=== PATIENT | female | born 1985 | race Caucasian/White ===

== ENCOUNTER 2016-10-02 14:41 | Emergency (ER) | payer OTHER ==
--- NOTE | 2016-10-02 17:04 | EDDOCDS ---
Nurse's Notes [facility] Name: Becka Holt Age: 31 yrs Sex: Female : 1985 Arrival Date: 10/02/2016 Time: 14:41 Bed PR1 / Private MD: BING Smith Diagnosis: Abnormal uterine and vaginal bleeding, unspecified Presentation: 10/02 14:48 Presenting complaint: Patient states: "I think I'm having a miscarriage." Reports onset ead of vaginal bleeding was Sunday. Reports heavy bleeding today with some clots. Reports cramping. LMP of 08/20/16. Risk factors: The patient reports no loss of conciousness prior to arrival. This patient has not had a hysterectomy. This patient has not begun menopause. Adult Sepsis Screening: The patient does not have new or worsening altered mentation. Patient's respiratory rate is less than 22. Systolic blood pressure is greater than 100. Patient has a qSOFA score of 0- Negative Sepsis Screen. Suicide/Homicide risk assessment- the patient denies having any suicidal and/or homicidal ideations and does not present with any other emotional, behavioral or mental health complaints. Status: The patient is a dependent. Transition of care: patient was not received from another setting of care. 14:48 Acuity: PRUDENCE Level 3 ead 14:48 Method Of Arrival: Walkin/Carried/Asstd ead Triage Assessment: 14:50 General: Appears in no apparent distress, Behavior is appropriate for age, cooperative. ead Pain: Location: abdomen Pain currently is 7 out of 10 on a pain scale. Respiratory: Airway is patent Respiratory effort is even, unlabored. GI: Reports cramping. : Reports vaginal bleeding that is with clots heavy flow. Derm: Skin is pink, warm & dry. 14:51 Pt Declines HIV testing. 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 none - PMHx: none; - PSHx: none; - Social history: Smoking status: Patient states was never smoker of tobacco. No barriers to communication noted, The patient speaks fluent Belgian, Speaks appropriately for age. - Family history: Not pertinent. - : The pt / caregiver states he / she is not on anticoagulants. Home medication list is obtained from the patient. - Exposure Risk Screening:: None identified. Screenin:01 Screening information is obtained from the patient. Fall risk: No risks identified. dsf Assistance ADL's: requires no assistance with activities of daily living. Abuse/DV Screen: The patient / caregiver reports he/she is: not in a situation that causes fear, pain or injury. Nutritional screening: No deficits noted. Advance Directives: Currently, there is no health care proxy. home support is adequate. Assessment: 17:01 Adult Sepsis Screening: The patient does not have new or worsening altered mentation. dsf Patient's respiratory rate is less than 22. Systolic blood pressure is greater than 100. Patient has a qSOFA score of 0- Negative Sepsis Screen. General: Appears in no apparent distress, Behavior is appropriate for age, cooperative. Pain: Location: right lower quadrant and left lower quadrant Pain currently is 7 out of 10 on a pain scale. Quality of pain is described as crampy. Neurological: Level of Consciousness is awake, alert. Cardiovascular: Capillary refill < 3 seconds. Respiratory: Airway is patent Respiratory effort is even, unlabored, Respiratory pattern is regular, symmetrical. Derm: Skin is pink, warm & dry. Vital Signs: 14:42 BP 103 / 69; Pulse 79; Resp 16; Temp 96.8(O); Pulse Ox 100% on R/A; Weight 63.5 kg (R); lr2 Height 5 ft. 9 in. (175.26 cm) (R); Pain 6/10; 17:00 BP 106 / 56; Pulse 77; Resp 20; Temp 98.3(O); Pulse Ox 97% on R/A; Pain 7/10; dsf 14:42 Body Mass Index 20.67 (63.50 kg, 175.26 cm) lr2 Vitals: 14:42 Log In Time: October 02, 2016 at 14:41. lr2 ED Course: 14:42 Patient visited by Lizbeth Berrios. lr2 14:42 Patient moved to Waiting lr2 14:43 BING Smith is Private Physician. lr2 14:44 Patient moved to Pre RCE lr2 14:50 Triage Initiated ead 15:10 Patient moved to Triage 3 ar3 15:18 [facility] cc10 15:18 Azeem Perez MD is Attending Physician. cc10 15:38 Patient visited by Hugh Keane PA-C. cc10 15:38 Patient visited by Hugh Keane PA-C. cc10 15:50 Patient moved to TR1 ar3 15:50 Hcg, Serum Quantitative Sent. ar3 15:50 Type & Screen Sent. ar3 16:02 Patient moved to Ultrasound br3 16:04 [facility] Payment Agreement was scanned into [employer] and attached to record. gjb 16:19 Patient moved to TR1 br3 16:45 Patient name changed from Becka\\S\\\\S\\Yanet\\S\\ to Becka\\S\\ \\S\\Yanet. EDMS 16:51 Patient moved to dsf 16:56 Luis [facility] [place] Referral Physician. cc10 17:01 The patient / caregiver is instructed regarding the plan of care and ED course. dsf 17:01 No IV's were initiated during this patient's visit. No procedures done that require dsf assistance. Order Results: Lab Order: Hcg, Serum Quantitative; SPEC'M 10/02/16 15:49 Test: HCG, SERUM QUANTITATIVE; Value: 409; Units: MIU/ML; Status: F Test Note: ; GESTATIONAL AGE APPROXIMATE HCG RANGE (MIU/ML) 0.2-1 WEEK 5-50 1-2 WEEKS 50-500 2-3 WEEKS 100-5,000 3-4 WEEKS 500-10,000 4-5 WEEKS 1,000-50,000 5-6 WEEKS 10,000-100,000 6-8 WEEKS 15,000-200,000 2-3 MONTHS 10,000-100,000 NON FEMALES LESS THAN 3.0 Patient samples may contain human heterophilic antibodies that could react with immunoassays to give falsely elevated or depressed results. This assay has been designed to minimize interference from heterophilic antibodies. Elevated hCG levels have also been associated with trophoblastic disease and nontrophoblastic neoplasms. The possibility of having these diseases should be considered before a diagnosis of is made. This test is not intended for use as a surrogate marker for aiding in the diagnosis or monitoring the treatment of cancer patients. [employer] methodology. Lab Order: Type & Screen; SPEC'M 10/02/16 15:49 Test: BLOOD TYPE; Value: O POS; Status: F Test: AB SCREEN (INDIRECT LEILA)VIS; Value: NEGATIVE; Status: F Outcome: 16:56 Discharge ordered by Provider. cc10 17:01 Discharge Assessment: Patient awake, alert and oriented x 3. No cognitive and/or dsf functional deficits noted. Patient verbalized understanding of disposition instructions. patient administered narcotics - no. The following High Risk Discharge criteria are identified: None. Discharged to home ambulatory. Condition: stable. Discharge instructions given to patient, Instructed on discharge instructions, follow up and referral plans. Demonstrated understanding of instructions, Pt was receptive of discharge instructions/ teaching. Property sent home with patient. 17:03 Ultrasound Study completed. dsf 17:03 Patient left the ED. dsf Signatures: Dispatcher [employer] EDMS Argenis Rodriguez br3 Tonya Marquez, POCKET CLOSER POCKET CLOSER ar3 Jeaneth GarciaRN RN dsf Keya White,RN RN Hugh Kaplan PA-C PA-C cc10 Evelyn Mera Laura lr2 PEDRO
--- NOTE | 2016-10-02 17:04 | EDDOCDS ---
Physician Documentation [facility] Name: Becka Holt Age: 31 yrs Sex: Female : 1985 Arrival Date: 10/02/2016 Time: 14:41 Bed PR Private MD: BING Smith Disposition: 10/02/16 16:56 Discharged to Home/Self Care. Impression: Abnormal uterine and vaginal bleeding, unspecified. - Condition is Stable. - Discharge Instructions: Threatened Miscarriage. - Medication Reconciliation form. - Follow up: BING Smith; When: Call to arrange an appointment; Reason: Wound/Symptom Recheck, Recheck today's complaints, Worsening of conditions, Continuance of care, recheck HCG level. - Problem is new. - Symptoms are unchanged. - Notes: Your HCG level today is 406. Please follow up with Luis for a recheck levelon Sun. Historical: - Allergies: no known allergies; - Home Meds: 1. none - PMHx: none; - PSHx: none; - Social history: Smoking status: Patient states was never smoker of tobacco. No barriers to communication noted, The patient speaks fluent Dominican, Speaks appropriately for age. - Family history: Not pertinent. - : The pt / caregiver states he / she is not on anticoagulants. Home medication list is obtained from the patient. - Exposure Risk Screening:: None identified. 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 9 in. (175.26 cm) (R); Pain 6/10; 17:00 BP 106 / 56; Pulse 77; Resp 20; Temp 98.3(O); Pulse Ox 97% on R/A; Pain 7/10; dsf 14:42 Body Mass Index 20.67 (63.50 kg, 175.26 cm) lr2 MDM: 15:46 Hcg, Serum Quantitative Ordered. EDMS 15:46 Type & Screen Ordered. EDMS 15:46 US 1st trimester Ordered. EDMS 15:57 Financial registration complete. gjb 16:04 [facility] Payment Agreement was scanned into [employer] and attached to record. gjb 16:06 TRANSVAGINAL US Ordered. EDMS 16:46 Hcg, Serum Quantitative Reviewed. cc10 16:46 Type & Screen Reviewed. cc10 Signatures: Dispatcher [employer] Jeaneth Oneil,RN RN Keya SandersRN RN Hugh Kaplan, PASylvieC PA-Izaiah ccEvelyn Carpenter The chart was reviewed and I authenticate all verbal orders and agree with the evaluation and treatment provided.Attachments: 16:04 [facility] Payment Agreement gjb MTDD
--- NOTE | 2016-10-02 17:42 | REP ---
Obstetric sonography: History: Vaginal bleeding. No beta-HCG level available. 6 weeks 1 day by the menstrual history. Findings: Transabdominal and transvaginal scanning are performed. Uterine dimensions are 8.6 x 3.5 x 4.7 cm. No intrauterine gestational sac is seen. Endometrial echo is centrally placed and 1.1 cm in thickness. No free fluid is noted. No focal uterine mass is seen. Normal ovaries are seen. Right ovary measures 2.4 x 1.7 x 2.2 cm. Left ovary dimensions are 3.0 x 1.6 x 2.1 cm. Doppler flow is normal to both ovaries. Resistive indices are 0.50 and 0.39 on the right and left respectively. Impression: No intrauterine gestation. Normal ovaries bilaterally. No free fluid. Early intrauterine versus completed spontaneous AB versus, less likely, ectopic . Clinical and possibly sonographic followup suggested. Signed by Maxime Sher MD 10/02/2016 08:05 P
--- NOTE | 2016-10-04 18:04 | EDDOCDS ---
Physician Documentation [facility] Name: Becka Holt Age: 31 yrs Sex: Female : 1985 Arrival Date: 10/02/2016 Time: 14:41 Bed PR Private MD: BING Smith Disposition: 10/02/16 16:56 Discharged to Home/Self Care. Impression: Abnormal uterine and vaginal bleeding, unspecified. - Condition is Stable. - Discharge Instructions: Threatened Miscarriage. - Medication Reconciliation form. - Follow up: BING Smith; When: Call to arrange an appointment; Reason: Wound/Symptom Recheck, Recheck today's complaints, Worsening of conditions, Continuance of care, recheck HCG level. - Problem is new. - Symptoms are unchanged. - Notes: Your HCG level today is 406. Please follow up with Luis for a recheck levelon Sun. Historical: - Allergies: no known allergies; - Home Meds: 1. none - PMHx: none; - PSHx: none; - Social history: Smoking status: Patient states was never smoker of tobacco. No barriers to communication noted, The patient speaks fluent Citizen Of [place], Speaks appropriately for age. - Family history: Not pertinent. - : The pt / caregiver states he / she is not on anticoagulants. Home medication list is obtained from the patient. - Exposure Risk Screening:: None identified. 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 9 in. (175.26 cm) (R); Pain 6/10; 17:00 BP 106 / 56; Pulse 77; Resp 20; Temp 98.3(O); Pulse Ox 97% on R/A; Pain 7/10; dsf 14:42 Body Mass Index 20.67 (63.50 kg, 175.26 cm) lr2 MDM: 15:46 Hcg, Serum Quantitative Ordered. EDMS 15:46 Type & Screen Ordered. EDMS 15:46 US 1st trimester Ordered. EDMS 15:57 Financial registration complete. gjb 16:04 [facility] Payment Agreement was scanned into [employer] and attached to record. gjb 16:06 TRANSVAGINAL US Ordered. EDMS 16:46 Hcg, Serum Quantitative Reviewed. cc10 16:46 Type & Screen Reviewed. cc10 Signatures: Dispatcher [employer] Jeaneth Oneil,RN RN Keya SandersRN RN Hugh Kaplan, PASylvieC PA-Izaiah ccEvelyn Carpenter The chart was reviewed and I authenticate all verbal orders and agree with the evaluation and treatment provided.Attachments: 16:04 [facility] Payment Agreement gjb Chart Complete MTDD
--- NOTE | 2016-10-04 18:04 | EDDOCDS ---
Physician Documentation [facility] Name: Becka Holt Age: 31 yrs Sex: Female : 1985 Arrival Date: 10/02/2016 Time: 14:41 Bed PR Private MD: BING Smith Disposition: 10/02/16 16:56 Discharged to Home/Self Care. Impression: Abnormal uterine and vaginal bleeding, unspecified. - Condition is Stable. - Discharge Instructions: Threatened Miscarriage. - Medication Reconciliation form. - Follow up: BING Smith; When: Call to arrange an appointment; Reason: Wound/Symptom Recheck, Recheck today's complaints, Worsening of conditions, Continuance of care, recheck HCG level. - Problem is new. - Symptoms are unchanged. - Notes: Your HCG level today is 406. Please follow up with Luis for a recheck levelon Sun. Historical: - Allergies: no known allergies; - Home Meds: 1. none - PMHx: none; - PSHx: none; - Social history: Smoking status: Patient states was never smoker of tobacco. No barriers to communication noted, The patient speaks fluent Mauritanian, Speaks appropriately for age. - Family history: Not pertinent. - : The pt / caregiver states he / she is not on anticoagulants. Home medication list is obtained from the patient. - Exposure Risk Screening:: None identified. 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 9 in. (175.26 cm) (R); Pain 6/10; 17:00 BP 106 / 56; Pulse 77; Resp 20; Temp 98.3(O); Pulse Ox 97% on R/A; Pain 7/10; dsf 14:42 Body Mass Index 20.67 (63.50 kg, 175.26 cm) lr2 MDM: 15:46 Hcg, Serum Quantitative Ordered. EDMS 15:46 Type & Screen Ordered. EDMS 15:46 US 1st trimester Ordered. EDMS 15:57 Financial registration complete. gjb 16:04 [facility] Payment Agreement was scanned into [employer] and attached to record. gjb 16:06 TRANSVAGINAL US Ordered. EDMS 16:46 Hcg, Serum Quantitative Reviewed. cc10 16:46 Type & Screen Reviewed. cc10 Signatures: Dispatcher [employer] Jeaneth Oneil,RN RN Keya SandersRN RN Hugh Kaplan, PASylvieC PA-Izaiah ccEvelyn Carpenter The chart was reviewed and I authenticate all verbal orders and agree with the evaluation and treatment provided.Attachments: 16:04 [facility] Payment Agreement gjb Chart Complete MTDD
--- NOTE | 2016-10-04 18:04 | EDDOCDS ---
Nurse's Notes [facility] Name: Becka Holt Age: 31 yrs Sex: Female : 1985 Arrival Date: 10/02/2016 Time: 14:41 Bed PR1 / Private MD: BING Smith Diagnosis: Abnormal uterine and vaginal bleeding, unspecified Presentation: 10/02 14:48 Presenting complaint: Patient states: "I think I'm having a miscarriage." Reports onset ead of vaginal bleeding was Sunday. Reports heavy bleeding today with some clots. Reports cramping. LMP of 08/20/16. Risk factors: The patient reports no loss of conciousness prior to arrival. This patient has not had a hysterectomy. This patient has not begun menopause. Adult Sepsis Screening: The patient does not have new or worsening altered mentation. Patient's respiratory rate is less than 22. Systolic blood pressure is greater than 100. Patient has a qSOFA score of 0- Negative Sepsis Screen. Suicide/Homicide risk assessment- the patient denies having any suicidal and/or homicidal ideations and does not present with any other emotional, behavioral or mental health complaints. Status: The patient is a dependent. Transition of care: patient was not received from another setting of care. 14:48 Acuity: PRUDENCE Level 3 ead 14:48 Method Of Arrival: Walkin/Carried/Asstd ead Triage Assessment: 14:50 General: Appears in no apparent distress, Behavior is appropriate for age, cooperative. ead Pain: Location: abdomen Pain currently is 7 out of 10 on a pain scale. Respiratory: Airway is patent Respiratory effort is even, unlabored. GI: Reports cramping. : Reports vaginal bleeding that is with clots heavy flow. Derm: Skin is pink, warm & dry. 14:51 Pt Declines HIV testing. 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 none - PMHx: none; - PSHx: none; - Social history: Smoking status: Patient states was never smoker of tobacco. No barriers to communication noted, The patient speaks fluent Guinean, Speaks appropriately for age. - Family history: Not pertinent. - : The pt / caregiver states he / she is not on anticoagulants. Home medication list is obtained from the patient. - Exposure Risk Screening:: None identified. Screenin:01 Screening information is obtained from the patient. Fall risk: No risks identified. dsf Assistance ADL's: requires no assistance with activities of daily living. Abuse/DV Screen: The patient / caregiver reports he/she is: not in a situation that causes fear, pain or injury. Nutritional screening: No deficits noted. Advance Directives: Currently, there is no health care proxy. home support is adequate. Assessment: 17:01 Adult Sepsis Screening: The patient does not have new or worsening altered mentation. dsf Patient's respiratory rate is less than 22. Systolic blood pressure is greater than 100. Patient has a qSOFA score of 0- Negative Sepsis Screen. General: Appears in no apparent distress, Behavior is appropriate for age, cooperative. Pain: Location: right lower quadrant and left lower quadrant Pain currently is 7 out of 10 on a pain scale. Quality of pain is described as crampy. Neurological: Level of Consciousness is awake, alert. Cardiovascular: Capillary refill < 3 seconds. Respiratory: Airway is patent Respiratory effort is even, unlabored, Respiratory pattern is regular, symmetrical. Derm: Skin is pink, warm & dry. Vital Signs: 14:42 BP 103 / 69; Pulse 79; Resp 16; Temp 96.8(O); Pulse Ox 100% on R/A; Weight 63.5 kg (R); lr2 Height 5 ft. 9 in. (175.26 cm) (R); Pain 6/10; 17:00 BP 106 / 56; Pulse 77; Resp 20; Temp 98.3(O); Pulse Ox 97% on R/A; Pain 7/10; dsf 14:42 Body Mass Index 20.67 (63.50 kg, 175.26 cm) lr2 Vitals: 14:42 Log In Time: October 02, 2016 at 14:41. lr2 ED Course: 14:42 Patient visited by Lizbeth Berrios. lr2 14:42 Patient moved to Waiting lr2 14:43 BING Smith is Private Physician. lr2 14:44 Patient moved to Pre RCE lr2 14:50 Triage Initiated ead 15:10 Patient moved to Triage 3 ar3 15:18 [facility]ane [facility] cc10 15:18 Azeem Perez MD is Attending Physician. cc10 15:38 Patient visited by Hugh Keane PA-C. cc10 15:38 Patient visited by Hugh Keane PA-C. cc10 15:50 Patient moved to TR1 ar3 15:50 Hcg, Serum Quantitative Sent. ar3 15:50 Type & Screen Sent. ar3 16:02 Patient moved to Ultrasound br3 16:04 [facility] Payment Agreement was scanned into [email or web address] and attached to record. gjb 16:19 Patient moved to TR1 br3 16:45 Patient name changed from Bekca\\S\\\\S\\Yanet\\S\\ to Becka\\S\\ \\S\\Yanet. EDMS 16:51 Patient moved to dsf 16:56 Luis [facility] is Referral Physician. cc10 17:01 The patient / caregiver is instructed regarding the plan of care and ED course. dsf 17:01 No IV's were initiated during this patient's visit. No procedures done that require dsf assistance. 17:51 US 1st trimester Returned. EDMS Order Results: Lab Order: Hcg, Serum Quantitative; SPEC'M 10/02/16 15:49 Test: HCG, SERUM QUANTITATIVE; Value: 409; Units: MIU/ML; Status: F Test Note: ; GESTATIONAL AGE APPROXIMATE HCG RANGE (MIU/ML) 0.2-1 WEEK 5-50 1-2 WEEKS 50-500 2-3 WEEKS 100-5,000 3-4 WEEKS 500-10,000 4-5 WEEKS 1,000-50,000 5-6 WEEKS 10,000-100,000 6-8 WEEKS 15,000-200,000 2-3 MONTHS 10,000-100,000 NON FEMALES LESS THAN 3.0 Patient samples may contain human heterophilic antibodies that could react with immunoassays to give falsely elevated or depressed results. This assay has been designed to minimize interference from heterophilic antibodies. Elevated hCG levels have also been associated with trophoblastic disease and nontrophoblastic neoplasms. The possibility of having these diseases should be considered before a diagnosis of is made. This test is not intended for use as a surrogate marker for aiding in the diagnosis or monitoring the treatment of cancer patients. [employer] methodology. Lab Order: Type & Screen; SPEC'M 10/02/16 15:49 Test: BLOOD TYPE; Value: O POS; Status: F Test: AB SCREEN (INDIRECT LEILA)VIS; Value: NEGATIVE; Status: F Radiology Order: US 1st trimester Test: US 1st trimester REASON FOR EXAMINATION: Bleeding; Obstetric sonography:; ; History: Vaginal bleeding. No beta-HCG level available. 6 weeks 1 day by the; menstrual history.; ; Findings: Transabdominal and transvaginal scanning are performed. Uterine; dimensions are 8.6 x 3.5 x 4.7 cm. No intrauterine gestational sac is seen.; Endometrial echo is centrally placed and 1.1 cm in thickness. No free fluid is; noted. No focal uterine mass is seen. Normal ovaries are seen. Right ovary; measures 2.4 x 1.7 x 2.2 cm. Left ovary dimensions are 3.0 x 1.6 x 2.1 cm.; Doppler flow is normal to both ovaries. Resistive indices are 0.50 and 0.39 on; the right and left respectively.; ; Impression:; ; No intrauterine gestation. Normal ovaries bilaterally. No free fluid. Early; intrauterine versus completed spontaneous AB versus, less likely,; ectopic . Clinical and possibly sonographic followup suggested.; ; ; Signed by; Maxime Sher MD 10/02/2016 08:05 P; Outcome: 16:56 Discharge ordered by Provider. cc10 17:01 Discharge Assessment: Patient awake, alert and oriented x 3. No cognitive and/or dsf functional deficits noted. Patient verbalized understanding of disposition instructions. patient administered narcotics - no. The following High Risk Discharge criteria are identified: None. Discharged to home ambulatory. Condition: stable. Discharge instructions given to patient, Instructed on discharge instructions, follow up and referral plans. Demonstrated understanding of instructions, Pt was receptive of discharge instructions/ teaching. Property sent home with patient. 17:03 Ultrasound Study completed. dsf 17:03 Patient left the ED. dsf Signatures: Dispatcher [employer] EDMS Argenis Rodriguez br3 Tonya Marquez, SAWMILL TALLY CLERK SAWMILL TALLY CLERK ar3 Jeaneth GarciaRN RN dsf Keya White,ISABELA RN Hugh Kaplan PASylvieC PA-C cc10 Evelyn Mera gjb Lizbeth Berrios lr2 Chart Complete MTDD
== END 2016-10-02 17:03 | disposition home or self-care (01) ==
LOC: M ED 14:41
DX: O20.0 Threatened abortion (principal); Z3A.01 Less than 8 weeks gestation of pregnancy

== ENCOUNTER 2018-06-04 07:18 | Day surgery (SDC) | payer OTHER ==
[2018-06-04 07:46] LABS: HEMATOCRIT 41.9 % (36.0-47.0); HEMOGLOBIN 13.4 g/dl (12.0-15.5); MEAN CORPUSCULAR HEMOGLOBIN 28.6 pg (27.0-33.0); MEAN CORPUSCULAR VOLUME 89.3 fl (80.0-96.0); PLATELET COUNT, AUTOMATED 180 10^3/uL (150-450); RED BLOOD COUNT 4.69 10^6/uL (4.00-5.40); RED CELL DISTRIBUTION WIDTH 12.3 % (11.5-14.5); WHITE BLOOD COUNT 5.5 10^3/uL (4.0-10.0)
[2018-06-04] MEDS: LR 1,000 ML IV (07:47)
[2018-06-04 08:11] LABS: ANION GAP 6 MEQ/L (8-16); BLOOD UREA NITROGEN 17 MG/DL (7-18); CALCIUM LEVEL 8.6 MG/DL (8.5-10.1); CARBON DIOXIDE LEVEL 27 MEQ/L (21-32); CHLORIDE LEVEL 106 MEQ/L (98-107); GLOMERULAR FILTRATION RATE > 60.0 (>60); GLUCOSE, FASTING 87 MG/DL (70-100); HCG, SERUM QUANTITATIVE < 1.0 MIU/ML; POTASSIUM SERUM 3.8 MEQ/L (3.5-5.1); SODIUM LEVEL 139 MEQ/L (136-145)
[2018-06-04] MEDS ORDERED: LIDOCAINE 2% INJ 100 MG/5 ML SDV (FOR ANES.) As Ordered (08:38)
[2018-06-04] MEDS ORDERED: ONDANSETRON 4MG/2ML VIAL (J2405) As Ordered (08:38)
[2018-06-04] MEDS ORDERED: dexameTHASONE 4 MG/ML 1ML VIAL (J1100) As Ordered ×2 (08:38)
[2018-06-04] MEDS ORDERED: KETOROLAC 60 MG/2 ML VIAL (J1885) As Ordered (08:38)
[2018-06-04] MEDS ORDERED: PROPOFOL 200 MG/20 ML VIAL As Ordered (08:38)
[2018-06-04] MEDS ORDERED: MIDAZOLAM INJ 2 MG/2 ML VIAL (J2250) As Ordered (08:38)
[2018-06-04] MEDS ORDERED: fentaNYL 100 MCG/2 ML INJECTION (J3010) As Ordered ×2 (08:39→09:50)
[2018-06-04] MEDS: ACETAMINOPHEN 650 MG SUPP As Ordered (09:18)
[2018-06-04] MEDS: ceFAZolin SOD 1 GM in D5W MINI-BAG PLUS 50 ML IV (09:47)
[2018-06-04] MEDS: ACETAMINOPHEN 650 MG SUPP PR (09:50)
[2018-06-04] MEDS ORDERED: SUCCINYLCHOLINE 100 MG/5 ML SYRINGE (J0330) As Ordered (09:59)
[2018-06-04] MEDS ORDERED: PHENYLephrine HCL 500 MCG/5 ML (100MCG/ML) SYRINGE (J2370) As Ordered (10:00)
[2018-06-04] MEDS ORDERED: ROCURONIUM BROMIDE 50 MG/5 ML VIAL As Ordered (10:02)
[2018-06-04] MEDS: BUPIVACAINE HCL 0.25% 30 ML VIAL As Ordered (10:05)
[2018-06-04] MEDS: METHYLENE BLUE 0.5% (5MG/ML) 10 ML AMP (PROVAYBLUE)(Q9968 PER 1MG) As Ordered (10:15)
[2018-06-04] MEDS ORDERED: GLYCOPYRROLATE INJ 0.2 MG/ML 2 ML VIAL As Ordered (10:19)
[2018-06-04] MEDS ORDERED: ePHEDrine SULFATE 25 MG/5 ML(5MG/ML) SYRINGE As Ordered (10:19)
[2018-06-04] MEDS ORDERED: METOCLOPRAMIDE INJ 10MG/2ML VIAL (J2765) IV (11:00)
[2018-06-04] MEDS ORDERED: PERCOCET 5MG/325MG TAB PO (11:00)
[2018-06-04] MEDS ORDERED: fentaNYL 100 MCG/2 ML INJECTION (J3010) IV (11:00)
[2018-06-04] MEDS ORDERED: LR 1,000 ML IV (11:00)
[2018-06-04] MEDS ORDERED: ONDANSETRON 4MG/2ML VIAL (J2405) IV (11:00)
== END 2018-06-04 12:24 | disposition home or self-care (01) ==
LOC: M SDC 07:18
DX: N97.9 Female infertility, unspecified (principal); N83.12 Corpus luteum cyst of left ovary; N94.89 Other specified conditions associated with female genital organs and menstrual cycle
CPT/HCPCS: 49320